=== PATIENT | male | born 1965 | race Caucasian/White ===

== ENCOUNTER 2017-06-25 03:32 | Day surgery (SDC) | payer BC ==
[~2017-06-25] VITALS: Ht 172.7 cm; Wt 61.2 kg
[2017-06-25] VITALS (7 sets, daily range): BP systolic 93–115; BP diastolic 60–87
[~2017-06-25 03:32] MED LIST: MULT-820 PO; NAPR220C12 PO; [UNRECOGNIZED DRUG - REMARK]
--- NOTE | 2017-06-25 06:31 | Short(Outpt) Discharge Summary ---
Discharge Summary Reason for Hosp/Final Diag: (1) Encounter for screening colonoscopy Hospital Course & Plan: colonoscopy was normal Departure Discharge to: Home Discharge Instructions Home Meds Reported Medications Naproxen Sodium (ALEVE) 220 Mg Capsule, 220 MG PO QDAY, CAPSULE 06/17/17 [Generic Sleep Pill] No Conflict Check 12/18/14 Multivitamin (MULTIVITAMINS) 1 Each Tablet, 1 EACH PO 12/18/14 Diet: Regular Activity: As Tolerated ANDREW ROJAS MD Jun 25, 2017 06:31
--- NOTE | 2017-06-25 06:31 | Post Operative Progress Note ---
Post Operative Progress Note Date: Jun 25, 2017 Time: 09:13 Surgeon: brian Anesthesia: dr tamayo Pre-Op Diagnosis: screening colonoscopy Post-Op Diagnosis: normal exam Procedure(s): colonoscopy ANDREW ROJAS MD Jun 25, 2017 06:31
[2017-06-25] MEDS ORDERED: PROPOFOL EMUL(*) 10MG/ML 20 ML 20 ML ONE ×2 (07:25→09:04)
[2017-06-25] MEDS ORDERED: LIDOCAINE/SOD BICARB 8.4% SYR ID ONE (08:00)
[2017-06-25] MEDS ORDERED: NORMOSOL R SOLN(*) 1000 ML BAG 1,000 ML IV PRN (08:00)
[2017-06-25] MEDS ORDERED: MIDAZOLAM 2 MG/2 ML VIAL IVP ONE (08:00)
--- NOTE | 2017-06-25 15:06 | OPERATIVE REPORT 1 ---
EVENT DATE: June 25, 2017 SURGEON: Geoffrey Will MD ANESTHESIOLOGIST: Aldo Villaseñor MD ANESTHESIA: Sedation. PREOPERATIVE DIAGNOSIS Screening colonoscopy. POSTOPERATIVE DIAGNOSIS Normal-appearing colonoscopic examination. PROCEDURE PERFORMED Colonoscopy. DESCRIPTION OF PROCEDURE The patient was placed in the left lateral decubitus position and given intravenous sedation. The rectal exam was unremarkable. A flexible colonoscope was inserted and advanced to the cecum. He had an excellent bowel prep. Ileocecal valve, base of the cecum, and appendiceal orifice were identified. The scope was slowly withdrawn. Care was taken to look behind the haustral folds. No abnormalities were noted in the cecum, right colon, transverse, descending, or sigmoid colon. The rectum was normal. The scope was retroflexed in the rectum, and that appeared to be normal. The patient should have another colonoscopy in 10 years. [facility]
== END 2017-06-25 10:15 | disposition home or self-care (01) ==
LOC: OR 03:32
PROVIDERS: ATTEND Surgery
DX: Z12.11 Encounter for screening for malignant neoplasm of colon (principal)
CPT/HCPCS: 00812; 45378; J2704

== ENCOUNTER → 2017-09-29 | Outpatient (CLI) | payer BC ==
--- NOTE | 2017-09-29 13:29 | RADIOLOGY IMAGING REPORT ---
FACILITY: [facility] - [place] PATIENT NAME: Chase Gale : 1965 MR: [id number] V: [id number] EXAM DATE: ORDERING PHYSICIAN: LILIANA JANE TECHNOLOGIST: Location: [facility] - [place] Patient: Chase Gale : 1965 Visit/Account:[id number] Date of Sevice: 09/29/2017 ELBOW RIGHT W/O CONTRAST COMPARISON: None. HISTORY: Severe discomfort, medial aspect of the right elbow. TECHNIQUE: Noncontrast axial CT of the right elbow with coronal and sagittal reformats. One of the following dose optimization techniques was utilized in the performance of this exam: auto mated exposure control; adjustment of the mA and/or kV according to patient size; or use of iterative reconstruction technique. Specific details can be referenced in the facility's radiology CT exam op erational policy. CONTRAST: None. FINDINGS: BONES : No acute fracture or malalignment. Small cystic lucencies consistent with subchondral degene rative cysts in the ulnar side of the radial head consistent with mild osteoarthritis. No other signi ficant degenerative changes. There is no bone lesion. FLUID: No appreciable effusion or drainable fluid collection. No CT evidence of olecranon bursitis. SOFT TISSUES: No localized soft tissue edema. No focal muscle atrophy or appreciable muscle edema. Assessment for subtle tendon pathology is limited by CT. No full thickness tendon tears are appreciat ed. OTHER: Negative. IMPRESSION: Mild osteoarthritis of the radial head. No specific findings to account for medial sided right elbow pain. Report Dictated By: Julio Contreras at 09/29/2017 1:21 PM Report E-Signed By: Julio Contreras at 09/29/2017 1:24 PM WSN:[id number]
== END ==
LOC: CT 01:02
PROVIDERS: ATTEND Chiropractor
DX: M19.021 Primary osteoarthritis, right elbow (principal)

== ENCOUNTER → 2018-06-01 | Outpatient (CLI) | payer BC ==
--- NOTE | 2018-06-01 16:10 | RADIOLOGY IMAGING REPORT ---
FACILITY: [facility] - [place], [place] PATIENT NAME: Chase Gale : 1965 MR: [id number] V: [id number] EXAM DATE: ORDERING PHYSICIAN: [facility] TECHNOLOGIST: Location: [facility] [place] Patient: Chase Gale : 1965 Visit/Account:[id number] Date of Sevice: 06/01/2018 Exam type: CHEST PA LAT History: History of osteosarcoma, follow-up Comparison: None. Findings: The lungs are free of acute effusions, infiltrates or edema. The cardiac silhouette is normal in siz e. There is a gentle S-shaped scoliosis of the thoracic spine. IMPRESSION: 1. No acute cardiopulmonary process is seen Report Dictated By: Paula Blake MD at 06/01/2018 4:05 PM Report E-Signed By: Paula Blake MD at 06/01/2018 4:06 PM WSN:[id number]
== END ==
LOC: RAD 15:24
DX: C40.21 Malignant neoplasm of long bones of right lower limb (principal)
CPT/HCPCS: 71046